=== PATIENT | female | born 1985 | race Hispanic/Latino ===

== ENCOUNTER 2020-03-19 14:24 | Emergency (ER) | payer SELFPAY ==
--- NOTE | ~2020-03-19 | XR_ITS ---
EXAMINATION: XR chest 2V EXAM DATE: 03/19/2020 15:11 INDICATION: cough, back pain with fever . TECHNIQUE: Frontal and lateral projections of the chest obtained and reviewed. There is no prior rand dy for comparison. FINDINGS: Patchy ill-defined bilateral acute airspace disease. Nonspecific infectious process but gi apurva prevalence of COVID 19, that should be considered. Upper lung zones are clear. Cardiomediastinal silhouette is normal. There is no pneumothorax suspecte d. There are no pleural effusions. There are no osseous abnormalities identified. IMPRESSION: Patchy bibasilar ill-defined acute airspace disease likely infectious process. Please cli nically correlate. Reviewed, dictated and finalized at location A. DER OPERATOR IMPRESSION: Patchy bibasilar ill-defined acute airspace disease likely infectio us process. Please clinically correlate.
--- NOTE | 2020-03-19 14:28 | ED.GENADULT ---
HPI - General Adult General Chief complaint: Upper Respiratory Infection Stated complaint: Back Pain,Cough Time Seen by Provider: 03/19/20 14:27 Source: patient Mode of arrival: ambulatory Limitations: no limitations History of Present Illness HPI narrative: 34-year-old female patient presents to the [facility] with complaints of cold symptoms for the past 2 days. Patient states she has had some upper back pain especially when she is coughing. Denies any back pain with cough. Patient states that at times she coughs up some clear sputum but mostly it is dry. Patient denies any shortness of breath. Patient states she has had some nausea and diarrhea but denies any vomiting. Denies any abdominal pain. Patient states she has been running a fever for the last couple of days. Denies any Covid exposure that she is aware of. Patient states she has been taking some DayQuil for her symptoms. Patient states she has been able to drink and keep down fluids last time she drank was about 1 hour ago. Related Data Allergies Allergy/AdvReac Type Severity Reaction Status Date / Time No Known Allergies Allergy Unverified 09/30/15 16:13 Review of Systems Review of Systems: Narrative: CONSTITUTIONAL: Positive fever, body aches and chills, denies sweats. EYES: Denies visual changes, redness, or discharge. ENT: Denies rhinorrhea, congestion, sore throat, or otalgia. CARDIOVASCULAR: Denies chest pain, palpitations, or edema. RESPIRATORY: Positive cough, denies dyspnea. GASTROINTESTINAL: Denies abdominal pain, nausea, vomiting, or diarrhea. GENITOURINARY: Denies dysuria or hematuria. SKIN: Denies rash or itching. MUSCULOSKELETAL: Positive upper back pain with coughing, denies joint pain, or myalgia. NEUROLOGIC: Denies headache, numbness, or weakness. PSYCHIATRIC: Denies anxiety or depression. [facility] Past Medical History Medical History (Updated 03/19/20 @ 15:25 by EBONY Patricia) No significant past medical history Comments At the time of my signature I agree with nursing past medical history, surgical, social, and family history. There is no relevant family history pertinent to the presenting complaint. Exam Narrative: Exam Narrative: GENERAL: ill-appearing, well-nourished, and in no acute distress. HEAD: Normocephalic, atraumatic. EYES: PERRLA and EOMI. ENT: Nares clear, no rhinorrhea or epistaxis. Mucous membranes moist. Posterior pharynx with no erythema, tonsillectomy, exudates or lesions present. NECK: Supple. No lymphadenopathy CHEST: Clear to auscultation. No respiratory distress. Patient able talk in clear complete sentences. No tripoding noted. HEART: Regular rate and rhythm. No murmur heard. Normal peripheral pulses. ABDOMEN: Soft, nontender, nondistended, normal active bowel sounds. No CVA tenderness on percussion. EXTREMITIES: Normal range of motion. No edema. SKIN: Warm, dry, no rash. NEURO: No focal deficits. Alert and oriented x3. Course Reevaluation(s) Reevaluation #1: Reevaluated patient after x-ray resulted. X-ray does show bilateral bibasilar airspaces very consistent with possible bilateral pneumonia which is consistent with COVID-19. Highly suspected patient with COVID-19 infection. Discussed with patient we will go ahead and get her tested and I will send an order over to [facility] they should call her sometime either today or possibly tomorrow to schedule her test. Discussed with her that it is highly and very important that she remain isolated regardless of her test results for the full 10 days. Discussed with patient we will go ahead and give her some medications to help with her symptoms. Patient verbalized understanding denies any other questions or concerns at this time. Date: 03/19/20 Time: 15:21 Vital Signs Vital signs: Vital Signs Temperature 38.2 C H 03/19/20 14:38 Pulse Rate 106 H 03/19/20 14:38 Respiratory Rate 18 03/19/20 14:38 Blood Pressure 115/56 L 03/19/20 14:38 Pulse
[2020-03-19 14:38] VITALS: BP 115/56; PULSE 106; RESP 18; TEMP 38.2; O2SAT 99
--- NOTE | 2020-03-19 15:10 | PC.NURSE ---
covid test order faxed. back in room from xray
== END 2020-03-19 15:42 | disposition home or self-care (01) ==
PROVIDERS: Emergency Provider Nurse Practitioner Family
DX: Z20.828 Contact with and (suspected) exposure to other viral communicable diseases (principal); J18.9 Pneumonia, unspecified organism
CPT/HCPCS: 71046; 87081; 87804; 87880; 99213; G0463

== ENCOUNTER 2020-03-20 08:34 | Outpatient (NON) | payer OTHER, SELFPAY ==
[2020-03-21 01:24] LABS: SARS-CoV-2 RNA PCR Positive
== END 2020-03-20 08:35 ==
PROVIDERS: Visit Provider Nurse Practitioner Family
DX: U07.1 COVID-19 (principal)
CPT/HCPCS: 87635; C9803; U0003